=== PATIENT | male | born 2000 | race Caucasian/White ===

== ENCOUNTER 2024-12-03 00:32 | Emergency (ER) | payer SELFPAY ==
[~2024-12-03] VITALS: Ht 172.7 cm; Wt 64.6 kg
[2024-12-03 00:36] VITALS: O2SAT 99
[2024-12-03] MEDS ORDERED: BENZ100C86 MT (02:05)
[2024-12-03] MEDS ORDERED: DOXY100C5 MT (02:05)
[2024-12-03] MEDS ORDERED: CETI10CA2 MT (02:05)
[2024-12-03 02:36] VITALS: BP 122/75; PULSE 101; RESP 18; TEMP 36.9; O2SAT 99
== END 2024-12-03 02:37 | disposition home or self-care (01) ==
LOC: ER 00:32
DX: J42 Unspecified chronic bronchitis (principal); F17.200 Nicotine dependence, unspecified, uncomplicated; Z79.899 Other long term (current) drug therapy
CPT/HCPCS: 99283